=== PATIENT | female | born 1955 | race Caucasian/White ===

== ENCOUNTER 2019-07-22 15:26 | Inpatient (IN) | payer OTHER, MEDICAID ==
[~2019-07-22] VITALS: Ht 162.6 cm; Wt 83.7 kg
--- NOTE | 2019-07-22 15:28 | NUR ---
PER MEDIC PT WAS FOUND ON FLOOR AT A "DETENTION" BY RESIDENTS. PER MEDIC NO STAFF WAS AROUND TO GIVE INFORMATION ON PT. MEDIC STS THEY HAVE NO MEDICAL/ALLERGY/HX OF PT. PER MEDIC PT HAS NO VISIBLE INJURIES, ZELAYA AND BG 108. PER MEDIC PT "TWITCHES" AND IS ORIENTED TO SELF. PT APPEARS TO HAVE PALE, WARM INTACT SKINS. PT IS ABLE TO ANSWER YES&NO BUT IS NOT ABLE TO VERBALIZE THAT SHE IS IN "PAIN" BUT CANNOT DIRECT WHERE. PUPILS ARE NON REACTIVE TO LIGHT BUT ABLE TO AROUSE TO VERBALIZATION. PT CAME WITH ZELAYA IN PLACE WITH YELLOW CLOUDY, 250ML URINE IN URINE BAG. PT CAME WITH DIAPER FROM HOME. PT HAS POOR DENTAL HYGEIN. PER MEDIC PT LIVES IN A HOME WHERE PT CAN SLE FMEDICATE.
[2019-07-22 16:09] LABS: microscopic required? YES; urine erythrocyte 1+ (NEGATIVE)
[2019-07-22 16:10] LABS: BASOPHIL % 0.4 % (0-2); PLATELET COUNT 202 x10^3mcL (130-400)
[2019-07-22 16:11] LABS: RED CELL DISTRIBUTION WIDTH 15.8 % (11.5-14.5)
--- NOTE | 2019-07-22 16:11 | NUR ---
RESP E/U. PT ON GURNEY WITH SIDE RAILS UP FOR SAFETY. PT IS NOT ABLE TO STAY AWAKE AT THIS POINT BUT IS CAN BE AROUSED WITH VERBAL STIMULATION. WILL CONTINUE TO MONITOR. DR. SHEEHAN MADE AWARE.
--- NOTE | 2019-07-22 16:12 | NUR ---
KAREN GAVE PHONE NUMBER [phone].
[2019-07-22 16:23] LABS: CARBON DIOXIDE 29.5 mmol/L (21-32); CREATININE SERUM 1.2 mg/dL (0.6-1.0); POTASSIUM SERUM 3.7 mmol/L (3.5-5.1)
--- NOTE | 2019-07-22 16:25 | NUR ---
XRAY AT BEDSIDE.
[2019-07-22 16:28] LABS: ALBUMIN 3.1 g/dL (3.4-5.0); BILIRUBIN TOTAL 0.3 mg/dL (0.20-1.00); TOTAL PROTEIN, SERUM 6.8 g/dL (6.4-8.2)
--- NOTE | 2019-07-22 16:34 | NUR ---
PT CONTINUES TO "TWITCH" AND RESPONDS TO VERBAL STIMULI. VSS. WILL CONTINUE TO MONITOR.
--- NOTE | 2019-07-22 16:59 | NUR ---
NARCAN GIVEN PER DR. SHEEHAN. PT IS ALERT AND ANSWERING ALL QUESTIONS. PT STS THAT HER SUPRAPUBIC ZELAYA IS BOTHERING HER.
--- NOTE | 2019-07-22 17:30 | NUR ---
ECCHYMOSIS NOTED ON NOSE AND FOREHEAD. PT STS THAT SHE "THINKS SHE REMEBERS FALLING," BUT I DONT REMEBER COMING HERE. PT IS ALERT AND ORIENTED. VSS. NO DISTRESS NOTED. WILL CONTINUE TO MONITOR.
--- NOTE | 2019-07-22 17:45 | NUR ---
PT TAKEN TO CT.
--- NOTE | 2019-07-22 17:53 | NUR ---
PT RETURNED FROM CT. PT STS THAT SHE DOES NOT KNOW HOW SHE ENDED UP HERE. PT THINKS SHE IS AT [facility]. PT STS THAT SHE SPEAKS FRISIAN. WHEN ASKED PT STS THAT SHE HAS GENERALIZED ABDOMINAL PAIN AND SOME CHEST DISCOMFORT. PT STS THAT THE CEHST DISCOMFRT IS NON RADIATING. VSS. RESP E/U. WILL CONTINUE TO MONITOR.
--- NOTE | 2019-07-22 19:15 | NUR ---
REPORT GIVEN TO SONYA AQUINO, TO ASSUME CARE OF PT.
--- NOTE | 2019-07-22 19:16 | NUR ---
REPORT RECIEVED FROM URIEL AQUINO. ASSUMING CARE OF PT AT THIS TIME.
--- NOTE | 2019-07-22 19:23 | NUR ---
PT LAYING ON GURNEY IN NAD, BREATHING EVEN AND UNLABORED. PT A&0X4, SPEAKING FULL CLEAR SENTENCES AND ANSWERING QUESTIONS APPROPRIATELY. SUPRAPUBIC CATH IN PLACE, EMPTIED APPROX 500 CC YELLOW CLOUDY URINE FROM CATH. CM AND [address]. PT BREATHING EVEN AND UNLABORED. OFFERED LIGHTS OFF AND BLANKETS BUT PT DECLINED AT THIS TIME. WILL CONTINUE TO MONITOR.
[2019-07-22 19:45] LABS: AMPHETAMINE QUAL UR NONE DETECTED (See below)
--- NOTE | 2019-07-22 19:58 | NUR ---
REPORT CALLED TO JAMAL LION
[2019-07-22] MEDS ORDERED: MORPHINE SULFAT (19:59)
[2019-07-22] MEDS ORDERED: DILAUDID4 MG (20:00)
--- NOTE | 2019-07-22 20:00 | NUR ---
PT TRANSFERED TO TELE AT THIS TIME VIA GURNEY IN NAD, BREATHING EVEN AND UNLABORED. PT A&0X4, SPEAKING FULL CLEAR SENTENCES. PT TAKEN VIA GURKIM ACCOMPANIED BY CEZAR RN AND KASHMIR LARA. PT REQUESTING TO KEEP DEPENDS UNDERWEAR ON AT THIS TIME, PER JAMAL AQUINO OKAY TO KEEP ON DURING TRANSPORT AND THAT PT WILL NEED TO TAKE THEM OFF UPSTAIRS. PROVDED PT EDUCATION THAT WE ARE A DIAPER FREE FACILITY AND PT VERBALIZED UNDERSTANDING THAT SHE WILL NEED TO TAKE THEM OFF ONCE TRANSPORT IS COMPLETE. TRANSPORT MONITOR IN PLACE.
--- NOTE | 2019-07-22 20:10 | NUR ---
PT RECEIVED FROM ED VIA GURNEY ACCOMPANIED BY RN AND EMT. PT A/O X4, WITH EPISODES OF CONFUSION AND FORGETFULNESS. PT WAS ADMITTED FOR ALOC AND OD. TELE #1, PT DENIES ANY CP/PRESSURE. PULSES PALPABLE, TRACE EDEMA TO BLE. BREATHING IS EVEN AND UNLABORED ON 2L NC, NO RESP DISTRESS NOTED. ABD SOFT AND ROUND, DENIES N/V. SUPRAPUBIC CATH IN PLACE, DRSG IN PLACE, CDI; YELLOW, CLOUDY URINE NOTED. GENERALIZED WEAKNESS. PINK DISCOLORATION NOTED TO FOREHEAD, NOSE, AND LLE, HEIDI. PT DENIES HAVING ANY PAIN AT THIS TIME. SL TO RFA, PATENT AND INTACT, SITE WNL. NO ACUTE DISTRESS NOTED. ORIENTED PT TO ROOM AND CALL LIGHT. BED IN LOWEST SETTING, BED ALARM ON, SIDE RAILS UP X2, CALL LIGHT WITHIN REACH. WILL CONT TO MONITOR.
--- NOTE | 2019-07-22 20:20 | NUR ---
PT WAS RECEIVED BY PRIMARY NURSE CHRISTELLE FROM ED VIA [employer], CAME IN DUE TO ALOC, SYNCOPE AND S/P FALL. AAOX4. DENIES HEADACHE/DIZZINESS. ABLE TO FOLLOW COMMANDS. SPEECH IS CLEAR. NO FACIAL DROOP. NO ARM DRIFT. NO SOB NOTED, LUNG SOUNDS CTA, O2 SAT=96% ON 2LPM/NC. DENIES CHEST PAIN/PRESSURE, SR ON THE MONITOR. DENIES ABDOMINAL DISCOMFORT. W/ SUPRAPUCBIC CATHETER DRAINING W/ YELLOW AND CLOUDY URINE. W/ PINK DISCOLORATIONS ON THE MID-FOREHEAD, NOSE AND LLE. W/ TRACE EDEMA ON BLE. IV SITE PATENT AND INTACT. SIDE RAILS UPX2. CALL LIGHT ON REACH. ENDORSED TO PRIMARY NURSE BOURGEOIS FOR CONTINUITY OF CARE
[2019-07-22 21:01] VITALS: BP 99/59
[2019-07-22 21:09] VITALS: Ht 162.6 cm; Wt 83.7 kg
--- NOTE | 2019-07-23 00:42 | NUR ---
PT RESTING IN BED WITH EYES, BUT IS EASILY AROUSABLE. BREATHING IS EVEN AND UNLABORED, NO RESP DISTRESS NOTED. PT DENIES HAVING ANY PAIN AT THIS TIME. BED ALARM ON, CALL LIGHT WITHIN REACH. WILL CONT TO MONITOR.
[2019-07-23 06:07] VITALS: BP 106/57
--- NOTE | 2019-07-23 06:31 | NUR ---
PT SLEPT WELL THROUGHOUT THE EVENING. BREATHING IS EVEN AND UNLABORED, NO RESP DISTRESS NOTED. PT C/O 08/15 HEADACHE AND REQUESTING [place]. DR BROWN CALLED AND MADE AWARE, AWAITING ORDERS AT THIS TIME. IVF INFUSING WELL TO [facility], SITE WNL. NO ACUTE CHANGES ENCOUNTERED DURING SHIFT. ALL NEEDS MET AND ANTICIPATED. PT COMPLIANT WITH NURSING CARE. BED ALARM ON. CALL LIGHT WITHIN REACH. WILL ENDORSE CARE TO AM NURSE.
--- NOTE | 2019-07-23 06:46 | NUR ---
PT C/O 10/10 HEADACHE, ONE TIME IMITREX GIVEN ORDERED. NO ACUTE DISTRESS NOTED.
[2019-07-23 06:50] LABS: BASOPHIL % 0.5 % (0-2); PLATELET COUNT 173 x10^3mcL (130-400)
[2019-07-23 07:11] LABS: CALCIUM 7.9 mg/dL (8.5-10.1); CARBON DIOXIDE 31.9 mmol/L (21-32); CHLORIDE SERUM 109 mmol/L (98-107); CREATININE SERUM 0.9 mg/dL (0.6-1.0); GFR1 > 60 mL/min; GLUCOSE SERUM 74 mg/dL (74-106); POTASSIUM SERUM 4.4 mmol/L (3.5-5.1); SODIUM SERUM 146 mmol/L (136-145)
--- NOTE | 2019-07-23 07:20 | NUR ---
RECEIVED PT FROM CABLE DISPATCHER. PT AWAKE, ALERT. A/OX4. PT ON 2L NC WITH NO RESP DISTRESS NOTED. PT ON TELE 1, DENIES CHEST PAIN. IV ACCESS LFA CDI INFUSING NS AT 100ML/HR. PT HAS SUPRAPUBIC CATH WITH CLOUDY, YELLOW URINE DRAINING. PT NOTED TO HAVE GENERALIZED WEAKNESS, USES WALKER AT BASELINE. PERIPHAERAL PULSES PALPABLE, TRACE EDEMA NOTED TO BLE. SAFETY MEASURES IN PLACE, BED LOW AND LOCKED. CALL LIGHT WITHIN REACH.
--- NOTE | 2019-07-23 07:29 | NUR ---
PT IN NO ACUTE DISTRESS. CONTINUITY OF CARE ENDORSED TO MONIK AQUINO.
[2019-07-23 08:38] VITALS: BP 113/55
--- NOTE | 2019-07-23 11:16 | NUR ---
PT REPORTS NOT WANTING TO GO BACK TO [facility]. DR NOLASCO PROVIDED PLACES TO PATIENT TO CHOOSE FROM. PT TO DISCUSS WITH INSURANCE POLICY CLERK.
[2019-07-23 12:18] VITALS: BP 148/76
--- NOTE | 2019-07-23 12:50 | NUR ---
PT EATING LUNCH AT THIS TIME WITH NO ACUTE DISTRESS OR DISCOMFORT NOTED. ALL NEEDS MET AT THIS TIME.
--- NOTE | 2019-07-23 14:04 | NUR ---
OLD IV INFILTRATING UPON FLUSHING. REMOVED WITH CATHETER INTACT. NEW IV TO LEFT FOREARM 22G INFUSING NS AT 100ML/HR.
--- NOTE | 2019-07-23 14:33 | NUR ---
CLEANED SUPRPUBIC CATHETER WITH NS AND APPLIED NEW DRESSING. SECURED WITH STAT LOCK. NO REDNESS NOTED. PT TOLERATED WELL.
--- NOTE | 2019-07-23 15:14 | NUR ---
PT COMPLAINING OF MIGRAINE HEADACHE 08/15. DR STEPHENS AWARE, NEW ORDER FOR IMITREX GIVEN QDAY PRN. MED ADMINISTERED ORDERED. WILL CONT TO MONITOR.
[2019-07-23 15:38] VITALS: BP 136/79
--- NOTE | 2019-07-23 16:25 | NUR ---
PT REPORTS SOME RELIEF FROM MIGRAINE AFTER ADMINISTRATION OF IMITREX. WILL CONTINUE TO MONITOR.
--- NOTE | 2019-07-23 18:50 | NUR ---
PT STABLE AT THIS TIME. ALL NEEDS TENDED TO THROUGHOUT SHIFT. WILL CONTINUE TO MONITOR AND ENDORSE CARE TO PUBLIC ADDRESS SERVICER.
[2019-07-23 19:50] VITALS: BP 118/93
--- NOTE | 2019-07-23 19:50 | NUR ---
RECEIVED REPORT FROM DAY SHIFT NURSE. PT IS A/O X4 BUT CAN BE FORGETFUL AND CONUSED AT TIMES. PT DENIES DODSON AT THIS TIME. PT IS ON TELE #1 WITH NSR. BP IS 118/93 HR 75. PT DENIES CP AT THIS TIME. PULSES ARE EQUAL AND STRONG BILATERALLY ON ALL FOUR EXTREMITIES. TRACE EDEMA PRESENT BLE. BREATHING IS EVEN AND UNLABORED. NO RESP DISTRESS. LUNG SOUNDS ARE SLIGHTLY DIMINISHED. BOWEL SOUNDS ACTIVE IN ALL 4Q. LAST BM WAS TODAY (07/23). PT HAS SUPRAPUBIC ZELAYA CATHETER PRESENT WITH CLOUDY YELLOW URINE. PT HAS GENERALIZED WEAKNESS. WALKER AT BEDSIDE. PINK COLORATION TO FOREHEAD AND NOSE. CURRENTLY DENIES PAIN AT THIS TIME. IV LFA 22G INTACT AND PATENT. NO REDNESS OR SWELLING. BED IN LOWEST POSITION. CALL LIGHT WITHIN REACH. WILL CONTINUE TO MONITOR.
--- NOTE | 2019-07-23 21:24 | NUR ---
ROUTINE MEDICATIONS WERE GIVEN AND TOLERATED WELL. BREATHING IS EVEN AND UNLABORED. NO RESP DISTRESS NOTED. CALL LIGHT WITHIN REACH. WILL CONTINUE TO MONITOR.
--- NOTE | 2019-07-23 22:33 | NUR ---
PT IS CONFUSED AND PARANOID. C/O PPL PLAYING THE PIPES AND THAT PPL ARE TALKING ABOUT HER. ASSURANCE GIVEN. WILL CONTINUE TO MONITOR.
--- NOTE | 2019-07-23 22:48 | NUR ---
PT IS C/O 10/10 PAIN ON RIGHT FOOT AND RIGHT SHOULDER RADIATING TO HER BACK. DR. SCOTT MADE AWARE. WILL AWAIT ORDER.
--- NOTE | 2019-07-23 23:15 | NUR ---
ATTEMPTED TO GIVE PATIENT IVP TORADOL 15 MG, PT REFUSED STATING "YOU'RE TRYING TO POISON ME." EXPLAINED THE BENEFITS OF THE ROUTE, BUT PT REFUSED AND REQUESTED THE MEDICATION IN PILL FORM. DR. SCOTT MADE AWARE. WILL AWAIT ORDERS.
--- NOTE | 2019-07-23 23:40 | NUR ---
PAIN MEDICATION TYLENOL 650 MG WAS GIVEN AND TOLERATED WELL. WILL REASSESS EFFECTIVENESS.
--- NOTE | 2019-07-24 01:45 | NUR ---
ASSISTED PATIENT TO THE RESTROOM. DENIES PAIN AT THIS TIME. BREATHING IS EVEN AND UNLABORED. NO RESP. DISTRESS NOTED. BED IN LOWEST POSITION. CALL LIGHT WITHIN REACH. WILL CONTINUE TO MONITOR.
--- NOTE | 2019-07-24 04:05 | NUR ---
PT IS ASLEEP. BREATHING IS EVEN AND UNLABORED ON RA. NO SIGNS OF RESP DISTRESS. BED IN LOWEST POSITION. CALL LIGHT WITHIN REACH. WILL CONTINUE TO MONITOR.
--- NOTE | 2019-07-24 04:45 | NUR ---
SUSTAINABILITY PROJECT MANAGER STATED PT WAS OFF FROM TELE. ATTEMPTED TO PUT TELE MONITOR BACK ON BUT PATIENT REFUSED. EDUCATED HER ABOUT THE BENEFITS AND RISKS FROM BEING ON THE MONITOR BUT PT DENIED. CHARGE NURSE SHRADDHA AWARE. WILL CONTINUE TO MONITOR.
--- NOTE | 2019-07-24 05:33 | NUR ---
DR. SCOTT MADE AWARE OF PT REFUSING TO BE ON TELE MONITOR.
--- NOTE | 2019-07-24 05:34 | NUR ---
PATIENT HAD REMOVED TELE MONITOR, INFORMED PATIENT OF THE IMPORTANCE AND PURPOSE OF TELE MONITOR BUT CONTINUE TO REFUSED TO HAVE IT PLACED BACK. DR BROWN INFORMED AND HE STATED WILL RELAY IT TO DR SCOTT. ALSO INFORMED MD THAT PATIENT REFUSED BLOOD DRAW. WILL RETURN TELE BOX TO [facility]. CHARGE NURSE SHRADDHA MADE AWARE ALSO OF PATIENT REFUSING TELE AND BLD DRAW THIS AM.
[2019-07-24 05:48] VITALS: BP 151/55
--- NOTE | 2019-07-24 05:57 | NUR ---
PT WAS RESTLESS THROUGHOUT NIGHT AND HAD LITTLE SLEEP. PT WAS UNCOMPLIANT WITH NURSING CARE THROUGHOUT SHIFT. DR. SCOTT MADE AWARE. NO ACUTE CHANGES. COMFORT AND SAFETY MEASURES MAINTAINED. WILL CONTINUE TO MONITOR AND ENDORSE CARE TO DAY SHIFT NURSE.
--- NOTE | 2019-07-24 07:16 | NUR ---
ENDORSED CARE TO DAY SHIFT NURSE.
--- NOTE | 2019-07-24 08:00 | NUR ---
PATIENT HAS BEEN RECEIVED ALERT AND ORIENTED TIMES THREE. SHE IS A BIT PARANOID AND DOES NOT WISH TO SHARE INFORMATION AT THIS ITME. SHE HAS CLEAR BUT DIMINISHED BREATH SOUNDS AND BOWEL SOUNDS ACTIVE. TOLERATED OOB AND HAS BEEN AMBULATORY. SHE HAS HAD FALL AT THE PLACE SHE LIVES AT AND A ACCENT BUT REFUSED TO TELL STAFF WHERE [place] IS FROM IN [place] THAT [place]ED IN [place]. PATIENT HAS TRACE EDEMA TO [facility] LOWER EXTREMTIES AND VITALS AT THIS TIME AT 97.6, 49, 18, 151/55, 95% ON ROOM AIR. PATIENT GAS BIBISILAR ATELECTASIS AND SHE DOES NOT APPEAR SHORT OF BREATH OR WITH ANY RESPIRATORY DISTRESS. CT THAT SHOWS SOME ATROPHY AND SMALL VESSEL ISCEMIC CHANGES. NOTED LABS ARE THE [facility] AT 7.9, [facility] AT 1.2 AND PATIENT HAS BEEN ON ROCPHIN AND DENIES ANY ADVERSE REACTION. SHE HAS A SUPRAPUBIC CATH BUT HAS BEEN GUARDED TO THE POINT SHE WILL NOT LET SEE AT THIS TIME. WILL ATTEMPT TO GAIN HER TRUST TO COMPLETE HER EXAM.
[2019-07-24 08:30] VITALS: BP 181/75
--- NOTE | 2019-07-24 09:32 | NUR ---
SASH CLAMP OPERATOR FROM [facility] CAME TO VISIT THE PATIENT FOR ADMISSION EVALUATION. PATIENT REFUSED TO BE SEEN. WILL CONTINUE TO MONITOR.
--- NOTE | 2019-07-24 09:51 | NUR ---
STAFF FROM THE [facility] IN TO SEE BU PATIENT WILL NOT ALLOW EVALUATION AT THIS TIME. WILL CONTINUE TO ATTEMPT ACCESS AND TRUST FROM THE PATIENT.
--- NOTE | 2019-07-24 11:43 | NUR ---
GAVE ZOFRAN FOR NAUSEA AND WILL CHANGE THE DRESSING TO HTE SUPRA PUBIC CATH PER HER REQUEST.
[2019-07-24 12:35] VITALS: BP 172/93
--- NOTE | 2019-07-24 14:13 | NUR ---
PATIENT HAS A PHARMACY AND FAMILY GIVEN AND CALLED AND REQUESTED THE MEDICADTION LIST THE PATIENT TAKES REGULARLY. FAXED THE INFORMATION THEY REQUESTED AND AWAITING FAX BACK AT THIS TIME.
--- NOTE | 2019-07-24 14:56 | NUR ---
PATIENT REQUESTED STAFF FOR STOOL TO BE SENT TO LAB. NO ORDER FOR STOOL NOTED. BAGGED THE STOOL AND HELP CLEAN HER SHE NOW STATES SHE CAN NOT WIPE HERSELF. SHE THOUGH HAD BEEN IN AND OUT OF THE BED AND TO AND FROM THE RESTROOM. SHE IS WEARING DEPENDS AND SOILED HER DEPENDS WITH A SOFT NOT DIARRHEA STOOL. AWAITING THE FAX TO RETURN OF HER MEDICAITONS FROM THE PHARMACY. PATIENT HAS REQUESTED HER HOME MEDICATIONS AND STATES SHE WAS TREATED AT [facility] FOR WITHDRAWL PREVIOUSLY. SHE HAS ECOLI AND SEDOMONAS IN THE URINE PER LAB RESULT. SHE IS ON ROCEPHIN ORDERED.
[2019-07-24] MEDS ORDERED: DILAUDID8 M1 PO (15:19)
[2019-07-24] MEDS ORDERED: MORPHINE SULFAT30 M6 PO (15:20)
[2019-07-24] MEDS ORDERED: XARELTO20 M1 PO ×2 (15:21→15:33)
[2019-07-24] MEDS ORDERED: LORAZEPAM2 MG PO (15:22)
[2019-07-24] MEDS ORDERED: PROMETHAZI6.25 MG/5 PO (15:24)
[2019-07-24] MEDS ORDERED: FUROSEMIDE80 MG PO (15:25)
[2019-07-24] MEDS ORDERED: EVISTA60 MG PO (15:25)
[2019-07-24] MEDS ORDERED: VESICARE5 M1 PO (15:26)
[2019-07-24] MEDS ORDERED: GABAPENTIN600 M1 PO (15:27)
[2019-07-24] MEDS ORDERED: CYMBALTA60 M1 PO (15:30)
--- NOTE | 2019-07-24 15:30 | NUR ---
PATIENT HAS BEEN VERY ANXIOUS AND AT TIMES TEAFUL AND YELLING OUT DEMANDING ASSISTANCE AND UNDIVIDED ATTENTION FROM STAFF SHE DOES NOT WANT OT BE ALONE. SHE HAS NOT TOLD STAFF WHAT SHE IS TAKING AND MORE IMPORTANT WHY. SHE CONTENDS SHE IS DEFENSELESS AND NEEDS HELP ON TASKS SHE COULD DO BEFORE. NEEDS TOTAL ASSIST DISPITE GETTING UP TO THE RESTROOM ON HER DESPITE SHE IS UP ON HER OWN EARILER AND BEING SO GUARDED PRIOR TO PRIVACY AND DOING THINGS HERSELF.
[2019-07-24] MEDS ORDERED: VITAMIN D32000 I2 PO (15:31)
[2019-07-24] MEDS ORDERED: COLCHICINE0.6 M1 PO (15:35)
[2019-07-24] MEDS ORDERED: PYR200 PO (15:45)
[2019-07-24] MEDS ORDERED: AJOVY225 MG/1.5 SQ (15:46)
[2019-07-24] MEDS ORDERED: TRAZODONE50 M1 PO (15:48)
[2019-07-24] MEDS ORDERED: AMBIEN CR6.25 M1 PO (15:49)
[2019-07-24] MEDS ORDERED: LYRICA75 M1 PO (15:50)
[2019-07-24] MEDS ORDERED: OXYBUTYNIN CHLOR5 MG (15:51)
[2019-07-24] MEDS ORDERED: KLOR-CON M1010 MEQ (15:52)
--- NOTE | 2019-07-24 16:08 | NUR ---
CALLED THE WARRANTY MANAGER AND ADVISED OF THE LIST IN THE COMPUTER.
[2019-07-24 16:58] VITALS: BP 164/73
--- NOTE | 2019-07-24 17:03 | NUR ---
PATIENT STILL ANXIOUS BUT A LITTLE LESS NOW. AWAITING FOR ANY NEW MEDICAIONS PER REVIEWED BY THE MARINE FARMER SHE WAS ADVISED OF PLACING IN THE RECONSILITAION FORM IN THE COMPUTER.
--- NOTE | 2019-07-24 17:16 | NUR ---
PATIENT RESTING IN BED. NO SIGNS OF DISTRESS NOTED. WILL CONTINUE TO MONITOR. CALL LIGHT WITHIN REACH.
--- NOTE | 2019-07-24 19:35 | NUR ---
Received pt resting in bed, appears anxious. Pt. is from [employer] [facility]. A/o x4, able to make most needs known, able to follow simple commands, pt. ordered to have Tele on, refused during the day, is open to monitor at this time, will attach. Pulse is palpable with trace edema noted on right arm, pt. on Xarelto. CTA on RA, denies SOB, abd soft, round, bowel sounds active, denies abd. pain yet reporting multiple diarrhea episodes during day shift (up until 1p), pt. with suprapubic catheter d/t neurogenic bladder w/ cloudy yellow urine noted, pt. req. to have suprapubic dressing change, will carry out during shift. Pt. has h(x) of falls, generalized weakness, noted ecchymosis on bridge of nose s/p fall, left hand ecchymosis d/t IV noted. Pt IVF Ns running @ 100 cc/hr w/ IV site at Left FA, no redness, swelling, or pain noted.
--- NOTE | 2019-07-24 20:00 | NUR ---
Dr. Monteiro (Psych MD) at bedside speaking with patient. No new orders at this time.
--- NOTE | 2019-07-24 20:30 | NUR ---
Pt. cooperative with attachment of Tele monitor. Tele #1, NSR [id number]. Educated pt. on importance of keeping monitor on, verbalized understanding, call light placed within reach, bed placed on lowest position, will continue to monitor.
[2019-07-24 21:10] VITALS: BP 147/59
--- NOTE | 2019-07-24 23:14 | NUR ---
Performed dressing change to suprapubic catheter. Removed old dressing w/ small, yellowish/green discharge noted, non-odorous, cleansed with NS, patted dry, applied new abosrbent sponge dressing, secured w/ paper tape, pt. tolerated well.
--- NOTE | 2019-07-25 01:59 | NUR ---
Endorsed care to KENIA Calvo for continuity of care. All questions / concerns have been addressed, all comfort and safety measuares provided for, call light within reach, bed lowered to lowest position, pt. is asleep at this time.
--- NOTE | 2019-07-25 02:09 | NUR ---
TOOK OVER PATIENT CARE FROM [facility], REPORT GIVEN. PATIENT APPEAR TO BE SLEEPING THIS TIME. BREATHING EASY AND NONLABOR. WILL CONTINUE TO MONITOR.
[2019-07-25 05:08] VITALS: BP 148/75
--- NOTE | 2019-07-25 05:25 | NUR ---
CHECKED AT INTERVALS FOR NEEDS AND COMFORT, ATIVAN PO GIVEN X1 FOR AGITATION.
--- NOTE | 2019-07-25 07:18 | NUR ---
PHYSICAL THERAPY NOTE ATTEMPTED PHYSICAL THERAPY SCHEDULED SESSION FOR 07/24. PATIENT REFUSED TREATMENT SESSION. PATIENT SPOTTED AMBULATING WITHOUT ASSISTANCE WITH IV POLE IN TOW AND ZELAYA CATHETER IN HAND. PATIENT APPEARED TO BE INDEPENDENT IN HER FUNCTIONAL MOBILITIES. NO FURTHER PHYSICAL THERAPY FOLLOW UP SESSIONS WARRANTED. [place] [facility] [place] NEEDS.
--- NOTE | 2019-07-25 08:00 | NUR ---
RECEIVED PATIENT OOB AND IN THE RESTROOM WASHING UP. PATIENT IS ANXIOUS AND THIS SEEMS TO BE THE NORM FOR HER. SHE IS FIGGITING AND SEMS SHE IS STRESSING ABOUT GETTING HER ADLS DOWN AT THIS TIME. SHE HAS NOT BEEN EATTING WELL AND HAS BOUTS OF PARANOIA AND SHE GET EXTREMELY EMOTIONAL ABOUT HER MEDICAL STAY. HAS HAD HX OF LUMBAR RADOCULOPATHY AND HAS A SUPRA PUBIC CATH/NEUROGENIC BLADDER. SHA HS BEEN WITH NOTED PSEUMOMONAS IN THE URINE ALONG WITH E COLI. PATIENT ON ROCEPHIN ORDERED AND SO FAR NO ADVERSE REACTON. SHE HAS NOTED ALLERGY TO LEVAQUIN. JULEE HAS BEEN ON REGULAR DIET IF SHE JUST WOULD EAT BUT SHE DOES NOT WANT TO EAT. THE URINE IS CLOUDY IM APPEARANCE AND A LOT OF OUTPUT WAS MEASURED OVER NIGHT. CONTINUED ON IV FLUIDS AND NOTED TRACE EDEMA TO THE LOWER EXTRMETIES.
[2019-07-25 08:40] VITALS: BP 145/64
--- NOTE | 2019-07-25 09:05 | NUR ---
PLACED BACK ON TELE AND IS RESTING AT THIS TIME. SHE IS CALMER TODAY. WILL CONTINUE TO MONITOR.
[2019-07-25] MEDS ORDERED: ROC1I IV (10:10)
[2019-07-25 10:50] VITALS: BP 148/75
[2019-07-25 12:40] VITALS: BP 156/71
--- NOTE | 2019-07-25 13:46 | NUR ---
REPORT GIVEN TO KENIA RIOS AT [facility]. DISCHARGE PENDING WITH [facility] VIA WHEELCHAIR AT 1600, 07/25/2019. WILL CONTINUE TO MONITOR PATIENT.
--- NOTE | 2019-07-25 14:20 | NUR ---
IVPB ROCEPHIN ADMINISTERED FOR PATIENT PRIOR TO DISCHARGE TO [facility]. PATIENT MADE AWARE.
--- NOTE | 2019-07-25 16:10 | NUR ---
CALLED DAY FOR ORDERS AND CLARIFICATION OF PATIENT HOME MEDICAIONS. PATIENT ANXIOUS AND SEEMS EMINCELY CONCERNED ABOUT THE DOSING OF THE DILAUDID AND THE MORPHINE. PATIENT HAS GOTTEN DRESSED AND DRESSING CHANGED TO THE SUPRA PUBIC SITE. PATIENT IS WITH ALL BELONGINGS BAGGED AND READY. RECIEVED ROCEPHIN AND IV TO [place] AND SECURED INDICATED. PATIENT HAS NO REDNESS OR ANY VISIBLE BRUSING OR ABRASION TO THE FACE OR THE SKIN. REPORT GIVEN BY TIAN AQUINO TO THE STAFF AT THE [facility] AND PATIENT IS EXPECTED. AWAITING TRANSPORT AT THIS TIME.
== END 2019-07-25 16:55 | DRG 917 ==
LOC: EDBD 15:26 → ED 15:26 → DU 19:47
PROVIDERS: Emergency Medicine; ADMIT Internal Medicine
DX: T40.601A Poisoning by unspecified narcotics, accidental (unintentional), initial encounter (principal); G92 Toxic encephalopathy; E44.0 Moderate protein-calorie malnutrition; N39.0 Urinary tract infection, site not specified; B96.20 Unspecified Escherichia coli [E. coli] as the cause of diseases classified elsewhere; B96.5 Pseudomonas (aeruginosa) (mallei) (pseudomallei) as the cause of diseases classified elsewhere; I95.9 Hypotension, unspecified; D64.9 Anemia, unspecified; Z68.31 Body mass index [BMI] 31.0-31.9, adult; Y92.049 Unspecified place in boarding-house as the place of occurrence of the external cause
CPT/HCPCS: 82962; 97116-GP; C9113; G0378; J0696; J1885; J2310; J2405; J7030; J7060; Q0092